=== PATIENT | female | born 1990 | race Caucasian/White ===

== ENCOUNTER 2017-12-10 07:05 | Emergency (ER) | payer OTHER ==
[2017-12-10 07:16] VITALS: BP 111/80; PULSE 89; TEMP 98.3; BMI 22.1
--- NOTE | 2017-12-10 07:50 | PDOC ---
History of Present Illness - General Chief Complaint: Psychiatric Stated Complaint: ANXIETY Time Seen by Provider: 12/10/17 07:16 - History of Present Illness Initial Comments: 12/10/17 07:50 Chief complaint: Not feeling well History of present illness: Patient states that she was in [facility] for 3 day business trip this past weekend, ate a salad and afterward felt mildly nauseated, one episode of vomiting and diarrhea, no abdominal pain. The symptoms have resolved. However since then she has felt intermittent nausea, lightheadedness, tingling in her extremities, and just "not herself". Review of systems: Admits palpitations, intermittent. Admits intermittent palpitations and the feeling of shortness of breath. Denies fever/chills, headache, URI symptoms, sore throat, cough, abdominal pain, visual or focal neurologic symptoms, unsteadiness of gait, urinary tract symptoms, vaginal bleeding or discharge. Does not admit vegetative signs. Past medical history: First in October, elective termination, without complication. No psychiatric history, denies prior treatment for anxiety , depression. Last menstrual period one week ago, denies the possibility of another Social history: Denies tobacco alcohol or nonprescription drugs. 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 Denies problem work, home, stress, or anxiety provoking events in her life. Not , no boyfriend. Family history: Noncontributory Physical exam: Alert and oriented well-developed well-nourished no acute distress. However, affect is somewhat flat, and she appears to be somewhat anxious and on the verge of tears. However, she attributes this to worry about her physical illness PERRLA, ENT clear Neck supple without bruit mass or nodes Lungs clear with full breath sounds throughout bilaterally. No tachypnea or dyspnea. Oxygen saturation adequate CV S1 and S2 normal without murmur rub or gallop pulses full and symmetric no JVD or edema no bruits Abdomen soft nontender without mass or organomegaly Neurological intact Extremities no CCE Skin clear except for patchy vitiligo on the neck, adequate turgor, wet mucous membranes Impression: Mild gastroenteritis, resolving. Anxiety, possible depression, possibly related to recent termination, although the patient does not appear to be receptive to these possibilities. Plan: Recommended exercise and other stress reduction techniques, consultation with her PCP in [place], and depending on PCP evaluation, and consider further exploration of psychological state. Past History - Past Medical History Allergies/Adverse Reactions: Allergies Allergy/AdvReac Type Severity Reaction Status Date / Time No Known Allergies Allergy Verified 12/10/17 07:06 Home Medications: Ambulatory Orders NK [No Known Home Medication] 12/10/17 COPD: No - Suicide/Smoking/Psychosocial Hx Smoking History: Never smoked Have you smoked in the past 12 months: No Information on smoking cessation initiated: No Hx Alcohol Use: No Drug/Substance Use Hx: No Substance Use Type: None *Physical Exam - Vital Signs Last Vital Signs Temp Pulse Resp BP Pulse Ox 98.3 F 89 16 111/80 98 12/10/17 07:06 12/10/17 07:06 12/10/17 07:06 12/10/17 07:06 12/10/17 07:06 *DC/Admit/Observation/Transfer Diagnosis at time of Disposition: Viral syndrome - Discharge Dispostion Disposition: HOME Condition at time of disposition: Stable Admit: No - Referrals - Patient Instructions Printed Discharge Instructions: DI for Viral Gastroenteritis -- Adult, DI for Anxiety -- Adult - Post Discharge Activity Forms/Work/School Notes: Back to Work
== END 2017-12-10 08:09 | disposition home or self-care (01) ==
LOC: FER 07:05
DX: B34.9 Viral infection, unspecified (principal)
CPT/HCPCS: 99282-25